=== PATIENT | female | born 1970 | race Caucasian/White ===

== ENCOUNTER 2024-06-06 17:51 | Emergency (ER) | payer OTHER ==
[~2024-06-06] VITALS: Ht 160 cm; Wt 70.3 kg
[~2024-06-06 17:51] MED LIST: CLON2 PO; HYDACE5; LORA2 PO; ONDA4 PO; OXYC5 PO; RXHYDACE PO; RXLORA1 PO
[2024-06-06] MEDS ORDERED: Ketorolac Tromethamine 30mg Vial IM ONE (18:30)
[2024-06-07] MEDS ORDERED: IBU600 MG PO (04:37)
[2024-06-07] MEDS ORDERED: CYCL10 PO (04:37)
== END 2024-06-06 18:39 | disposition home or self-care (01) ==
LOC: ER 17:51
DX: M54.16 Radiculopathy, lumbar region (principal); M62.830 Muscle spasm of back
CPT/HCPCS: 96372; 99283-25; J1885

== ENCOUNTER 2024-06-07 01:11 | Emergency (ER) | payer OTHER ==
[~2024-06-07] VITALS: Ht 157.5 cm; Wt 68.0 kg
[2024-06-07] MEDS ORDERED: Diazepam 5 MG / ML 2ML SYR IV ONE (02:00)
[2024-06-07] MEDS ORDERED: Ketorolac Tromethamine 30mg Vial IV ONE (02:00)
[2024-06-07 02:32] LABS: BASOPHILS ABSOLUTE AUTO 0.05 K/mm3 (0.00-0.23); BASOPHILS PERCENT AUTO 0 % (0-2); EOSINOPHILS ABSOLUTE AUTO 0.15 K/mm3 (0.00-0.68); EOSINOPHILS PERCENT AUTO 1 % (0-6); Hematocrit 36.4 % (33.0-51.0); Hemoglobin 12.3 g/dL (11.5-16.0); IMMATURE GRAN ABSOLUTE AUTO 0.05 K/mm3 (0.00-0.10); IMMATURE GRAN PERCENT AUTO 0 % (0-1); LYMPHOCYTES ABSOLUTE AUTO 2.04 K/mm3 (0.84-5.20); LYMPHOCYTES PERCENT AUTO 14 % (21-46); MONOCYTES ABSOLUTE AUTO 1.07 K/mm3 (0.16-1.47); MONOCYTES PERCENT AUTO 7 % (4-13); Mean Corpuscular HGB 30.9 pg (26.0-34.0); Mean Corpuscular HGB Conc 33.8 g/dL (31.5-36.5); Mean Corpuscular Volume 92 fL (80-100); Mean Platelet Volume 7.5 fL (9.1-12.4); NEUTROPHILS ABSOLUTE AUTO 11.24 K/mm3 (1.96-9.15); NEUTROPHILS PERCENT AUTO 77 % (41-73); Platelet Count 685 K/mm3 (150-400); RDW Coefficient Variation 11.8 % (11.7-14.2); RDW Standard Deviation 39.8 fL (35.1-46.3); Red Blood Cell Count 3.98 M/mm3 (3.80-5.20)
[2024-06-07 02:52] LABS: Albumin, Blood 2.7 g/dL (3.4-5.0); Albumin/Globulin Ratio 0.6 (0.8-1.8); Bilirubin, Total 0.2 mg/dL (0.1-1.0); Bun/Creatinine Ratio 12.3 (12.0-20.0); Calcium, Blood 8.4 mg/dL (8.5-10.1); Creatinine, Blood 0.65 mg/dL (0.40-1.00); Globulin, Blood 4.9 g/dL (2.2-4.0); Potassium, Blood 3.7 mmol/L (3.5-5.5); Total Protein, Blood 7.6 g/dL (6.4-8.2)
[2024-06-07 03:55] LABS: U Amphetamine Screen DETECTED; U Barbituate Screen Not Detected; U Benzodiazapine Screen Not Detected; U Buprenorphine Screen Not Detected; U Cannabinoids Screen Not Detected; U Cocaine Screen Not Detected; U Methadone Screen Not Detected; U Methamphetamine Screen DETECTED; U Opiates Screen Not Detected; U Oxycodone Screen Not Detected; U Phencyclidine Screen Not Detected
[2024-06-07] MEDS ORDERED: CYCL10 PO (04:37)
[2024-06-07] MEDS ORDERED: IBU600 MG PO (04:37)
== END 2024-06-07 04:52 ==
LOC: ER 01:11
PROVIDERS: Emergency Medicine
DX: M54.32 Sciatica, left side (principal); F15.10 Other stimulant abuse, uncomplicated
CPT/HCPCS: 73706; 80053; 82550; 83605; 85025; 96374-59; 96375; 99284-25; J1885; J3360; Q9967